=== PATIENT | female | born 1965 | race African-American/Black ===

== ENCOUNTER 2016-05-15 13:40 | Emergency (ER) | payer MEDICAID ==
[~2016-05-15] VITALS: Ht 165.1 cm; Wt 95.3 kg
[2016-05-15 14:37] VITALS: BP 109/72
[2016-05-15] MEDS ORDERED: cefTRIAXone SOD 1,000 MG VL IM ONE (15:15)
[2016-05-15] MEDS ORDERED: TETANUS-DIPTH-ACEL PERTUSSIS 0.5ML SYRG IM ONE (15:15)
== END 2016-05-15 15:35 | disposition home or self-care (01) ==
LOC: ER 13:40
DX: S61.233A Puncture wound without foreign body of left middle finger without damage to nail, initial encounter (principal); W54.0XXA Bitten by dog, initial encounter; Y93.89 Activity, other specified; Y99.8 Other external cause status; Y92.89 Other specified places as the place of occurrence of the external cause
CPT/HCPCS: 90471; 90715; 96372; 99284; J0696

== ENCOUNTER 2016-07-27 14:37 | Emergency (ER) | payer MEDICAID ==
[~2016-07-27] VITALS: Ht 165.1 cm; Wt 91.6 kg
[2016-07-27 17:14] VITALS: BP 151/96
== END 2016-07-27 18:11 | disposition home or self-care (01) ==
LOC: ER 14:37
DX: I25.2 Old myocardial infarction (principal); Z90.710 Acquired absence of both cervix and uterus